=== PATIENT | female | born 1940 | race Caucasian/White ===

== ENCOUNTER 2018-07-24 08:44 | Outpatient (CLI) ==
--- NOTE | 2018-07-24 10:10 | CT ---
EXAM: CT of the abdomen pelvis with contrast History: Fatigue and hematuria. Comparison: CT abdomen and pelvis 03/25/2015 Technique: Multiplanar CT images through the abdomen pelvis were obtained following administration o f IV contrast Findings: Lung bases are clear. No acute osseous abnormalities. Degenerative changes of the spine. Status post cholecystectomy. Stable mild intrahepatic and extrahepatic biliary ductal dilatation. N o focal liver or splenic lesions. Atherosclerotic vascular calcifications. No pancreatic lesions. Adrenal glands are unremarkable. No change in the small bilateral renal cysts. No bowel obstruction . Bladder is not well distended. There is no focal bladder wall thickening. No perirectal inflamma tion. Uterus is not seen. Colonic diverticulosis. No free air and no ascites. No hydronephrosis. No perinephric stranding. No pathologically enlarged lymph nodes. Impression: 1. No acute intra-abdominal or pelvic process. 2. Stable small benign bilateral renal cysts. 3. Colonic diverticulosis. 4. Status post cholecystectomy with stable mild intrahepatic and extrahepatic biliary ductal dilatat ion
== END 2018-07-24 08:45 | disposition home or self-care (01) ==
LOC: RAD 08:44
PROVIDERS: ATTEND Family Medicine
DX: R53.83 Other fatigue (principal); R89.9 Unspecified abnormal finding in specimens from other organs, systems and tissues; M79.10 Myalgia, unspecified site; R31.21 Asymptomatic microscopic hematuria; E83.52 Hypercalcemia